=== PATIENT | male | born 1975 | race African-American/Black ===

== ENCOUNTER 2019-05-23 19:23 | Emergency (ER) | payer BC ==
--- OUTSIDE RECORDS SUMMARY | 2019-05-23 19:26 | XMS REPORT | Summary of Care ---
:1975 Author Organization [facility] Outpatient Imaging [place] Address [address] [place] [address]- Encounter HQ Encntr_alias(FIN) [id number] Date(s): 07/31/18 - 07/31/18 [facility] Outpatient Imaging [address] [address]- [place] Encounter Diagnosis Calculus of kidney (Final) - 08/03/18 Discharge Disposition: Home or Self Care Attending Physician: Tushar Vega MD Referring Physician: Tushar Vega MD Vital Signs No data available for this section Problem List Condition Effective Dates Status Health Status Informant HTN (hypertension)(Confirmed) Active Renal stone(Confirmed) Active Obesity(Confirmed) Active Allergies, Adverse Reactions, Alerts No Known Medication Allergies Medications No data available for this section Results No data available for this section Immunizations No data available for this section Procedures Procedure Date Related Diagnosis Body Site Status Foot joint operations Completed Social History Social History Type Response Smoking Status Never smoker; Exposure to Tobacco Smoke None; Cigarette Smoking Last 365 Days No; Reg Smoking Cessation Counseling No entered on: 10/27/18 Assessment and Plan No data available for this section
--- OUTSIDE RECORDS SUMMARY | 2019-05-23 19:26 | XMS REPORT | Summary of Care ---
:1975 Author Organization [facility] [place] Address [address] [facility] [facility] [address], [place] [address]- Encounter HQ Anatntr_hiren(FIN) [id number] Date(s): 12/19/17 - 12/20/17 [facility] [address] [address], [place] [address] - [phone] Vital Signs No data available for this section Problem List Condition Effective Dates Status Health Status Informant Obesity(Confirmed) Active Allergies, Adverse Reactions, Alerts Substance Reaction Severity Status NKDA Active Medications No data available for this section Results No data available for this section Immunizations No data available for this section Procedures Procedure Date Related Diagnosis Body Site Status Foot joint operations Completed Social History Social History Type Response Smoking Status Never smoker; Exposure to Tobacco Smoke None; Cigarette Smoking Last 365 Days No; Reg Smoking Cessation Counseling No entered on: 01/27/18 Assessment and Plan No data available for this section
--- OUTSIDE RECORDS SUMMARY | 2019-05-23 19:26 | XMS REPORT | Summary of Care ---
:1975 Author Organization [facility]iology [facility] [place] [address] [facility] [address] [place] [address] Encounter HQ Stephen_hiren(FIN) [id number] Date(s): 12/12/18 - 12/13/18 [facility] [address] [address]- [phone] Vital Signs No data available for this section Problem List Condition Effective Dates Status Health Status Informant HTN (hypertension)(Confirmed) Active Renal stone(Confirmed) Active Obesity(Confirmed) Active Allergies, Adverse Reactions, Alerts Substance Reaction Severity Status NKDA Active Medications amLODIPine 2.5 mg oral tablet 2.5 mg=1 tab, PO, Daily, # 90 ea, 4 Refill(s), Pharmacy: [facility] [id number] Start Date: 12/12/18 Status: Ordered Results No data available for this section [...]
--- OUTSIDE RECORDS SUMMARY | 2019-05-23 19:26 | XMS REPORT | Summary of Care ---
:1975 Author Organization [facility] Outpatient Imaging [place] Address [address] [place] [address]- Encounter HQ Encntr_alias(FIN) [id number] Date(s): 07/31/18 - 07/31/18 [facility] Outpatient Imaging [address] [address]- [place] Encounter Diagnosis Calculus of kidney (Final) [...]
--- OUTSIDE RECORDS SUMMARY | 2019-05-23 19:26 | XMS REPORT | Summary of Care ---
:1975 Author Organization [facility] Primary Care [place] Address [address] [facility], [place] [address]- Care Team Providers Name Role Phone Tobias Marte Jr Primary Care Physician Encounter HQ Solokemal(CHARLENE) [id number] Date(s): 05/04/19 - 05/04/19 [facility] [place] [address] [facility] [place] [address] [place] [address]- [phone] Discharge Disposition: Home or Self Care Attending Physician: Tobias Enamorado MD Vital Signs Most recent to oldest [Reference Range]: 1 Height 180.34 cm (05/04/19 1:54 PM) Temperature Oral [96.4-99.1 DegF] 98 DegF (05/04/19 1:54 PM) Blood Pressure [90-140/60-90 mmHg] 134/81 mmHg (05/04/19 1:54 PM) Peripheral Pulse Rate [60-100 bpm] 76 bpm (05/04/19 1:54 PM) Weight 116.989 kg (05/04/19 1:54 PM) Body Mass Index 35.97 m2 (05/04/19 1:54 PM) Problem List Condition Effective Dates Status Health Status Informant HTN (hypertension)(Confirmed) Active Renal stone(Confirmed) Active Obesity(Confirmed) Active Allergies, Adverse Reactions, Alerts No Known Medication Allergies Medications ciclopirox topical 0.77% cream 1 appl, TOP, BID, X 14 day, # 15 gm, 0 Refill(s), Pharmacy: [facility] [id number] Start Date: 05/04/19 Stop Date: 05/18/19 Status: Orderedhydrocortisone 2.5% rectal cream with applicator 1 appl, [place], BID, X 14 day, # 30 gm, 0 Refill(s), Pharmacy: [facility] [address] Start Date: 05/04/19 Stop Date: 05/18/19 Status: Ordered Results No data available for this section Immunizations No data available for this section Procedures Procedure Date Related Diagnosis Body Site Status Foot joint operations Completed Social History Social History Type Response Smoking Status Never smoker; Exposure to Tobacco Smoke None; Cigarette Smoking Last 365 Days No; Reg Smoking Cessation Counseling No entered on: 05/04/19 Assessment and Plan No data available for this section
--- OUTSIDE RECORDS SUMMARY | 2019-05-23 19:26 | XMS REPORT | Continuity of Care Document ---
:1975 Author Organization [facility] Care Team Providers Name Role Phone [facility] Unavailable Unavailable Problems Problem Status Onset Classification Date Comments Source Date Reported Calculus of 08/04/20 02/18/2019 [facility] kidney 18 [place] N20.0 - CALCULUS Active 07/27/20 [facility] OF KIDNEY 18 [place] Angina pectoris, 01/21/20 04/21/2018 [facility] unspecified 18 Abscess 01/24/20 Diagnosis 01/23/2017 [facility] 17 Headache 01/24/20 Diagnosis 01/23/2017 [facility] 17 Streptococcal 10/05/20 Diagnosis 10/05/2016 [facility] sore throat 16 Cough 10/05/20 Diagnosis 10/05/2016 [facility] 16 Discharge 07/04/20 07/07/2014 [facility] Diagnosis: Acute 14 headache HEADACHES Active 07/04/20 [facility] 14 Obesity Active Problem 05/17/2019 [facility], [facility], [facility] HTN (Confirmed) Active Problem 05/17/2019 [facility] Renal stone Active Problem 05/17/2019 [facility] Streptococcal Problem 01/23/2017 [facility] Sore Throat Elevated Blood Problem 01/23/2017 [facility] Pressure Medications Medication Details Route Status Patient Ordering Order Source Instructions Provider Date Hydrocortisone 25 1 appl, ND, Active 05/04/ Medical MG/ML Rectal BID, X 14 day, 2018 Group Cream # 30 gm, 0 Refill(s), Pharmacy: [facility] [id number] ciclopirox 7.7 1 appl, TOP, Active 05/04[facility] Medical MG/ML Topical BID, X 14 day, 2019 Group Cream # 15 gm, 0 Refill(s), Pharmacy: [facility] [address] amLODIPine 2.5 mg 2.5 mg=1 tab, Active 12/12/ Medical oral tablet PO, Daily, # 2019 Group 90 ea, 4 Refill(s), [facility] [address] Fluticasone 1 spray, Active Medical propionate 0.05 NASAL, BID, # 2019 Group MG/ACTUAT Metered 16 gm, 0 Dose Nasal [place] Refill(s), [facility] [address] Azithromycin 5 See No Longer Medical Day Dose Pack 250 Instructions, Active 2019 Group mg oral tablet Take 2 tablets by mouth the first day then 1 tablet by mouth days 2-5., X 5 day, # 6 tab, 0 Refill(s), [facility] [address] triamcinolone 40 mg, Route: Inactive Medical ACETONIDE 40 IM, ONCE, 2019 Group mg/mL injectable Dosing Weight suspension 112.273, kg, (KENALOG), Start date: 10/27/18 11:06:00 PAINTER HAND, Stop date: 10/27/18 11:06:00 PAINTER HAND meloxicam 7.5 mg 7.5 mg=1 tab, Active Medical oral tablet PO, BID, # 20 2018 Group tab, 0 Refill(s), Pharmacy: [facility] [address] tamsulosin 0.4 mg 0.4 mg=1 cap, Active Medical oral capsule PO, Daily, 0 2018 Group Refill(s) Acetaminophen 300 1 tab, PO, Active Medical MG / Codeine Q6H, 0 2018 Group Phosphate 30 MG Refill(s) Oral Tablet [Tylenol with Codeine #3] amLODIPine 2.5 mg 2.5 mg=1 tab, Active Medical oral tablet PO, Daily, # 2018 Group 90 tab, 1 Refill(s), [facility] [address] Aspirin 81 MG 81 mg=1 tab, Active Medical Enteric Coated PO, Daily, # 2018 Group Tablet 90 tab, 3 Refill(s), Pharmacy: [facility] [address] Metoclopramide 10 10 mg, PO, Active [facility] MG Oral Tablet Q6H, headache, 2013 [place] # 20 tab, 0 Refill(s) Ketorolac 30 mg, 1 mL, Inactive [facility] Route: IVP, 2013 [place] Drug form: INJ, ONCE, Dosing Weight 109.091, kg, Priority: STAT, Start date: 07/04/14 14:23:00, Stop date: 07/04/14 14:23:00Notes: (Same as:Toradol) IV bolus must be given >15 seconds. Give IM administration slowly and deeply into the muscle. Not for use > 4 days Metoclopramide 10 mg, Route: Inactive [facility] IVP, Drug 2013 [place] form: INJ, ONCE, Dosing Weight 109.091, kg, Priority: STAT, Start date: 07/04/14 11:52:00, Stop date: 07/04/14 11:52:00 Sodium Chloride 1,000 mL, Inactive [facility] 0.154 MEQ/ML 1,000 ml/hr, 2013 [facility] Injectable Infuse Over: 1 Solution hr, Route: IV, ONCE, Priority: STAT, Dosing Weight 109.091 kg, Start date: 07/04/14 11:51:00, Duration: 1 doses or times, Stop date: 07/04/14 11:51:00 Brompheniramine Bromfed DM 2 Active [facility] Maleate 0.4 MG/ML mg-30 mg-10 / mg/5 mL syrup Dextromethorphan Take 10 mL Hydrobromide 2 every 4-6 MG/ML / hours by oral Pseudoephedrine route as Hydrochloride 6 needed. MG/ML Oral Solution [Bromfed DM] cefdinir 300 MG cefdinir 300 Active [facility] Oral Capsule mg capsule Take 1 capsule every 12 hours by oral route with meals for 7 days. Lidocaine Lidocaine Active [facility] Hydrochloride 20 Viscous 2 % MG/ML Mucous mucosal Membrane Topical solution Take Solution 15 mL every 3 hours by oral route as needed. DO NOT SWALLOW!!! Amlodipine 2.5 MG amlodipine 2.5 Active [facility] Oral Tablet mg tablet Sulfamethoxazole Bactrim DS 800 Active [facility] 800 MG / mg-160 mg Trimethoprim 160 tablet Take 1 MG Oral Tablet tablet every [Bactrim] 12 hours by oral route with meals for 10 days. Allergies, Adverse Reactions, Alerts Substance Category Reaction Severity Reaction Status Date Comments Source type Reported No Known Assertion Drug MH Medication allergy Medical Allergies Group Immunizations Immunization Date Given Site Status Last Comments Source Updated influenza, 08/24/2016 completed [facility] injectable, quadrivalent Results Order Results Value Reference Date Interpretation Comments Source Name Range RESULT positive 10/05/ [facility] 2016 SWAB Left and 10/05/ [facility] LOCATION Right 2016 tonsillar pillars Influenza A negative [facility] 2015 Influenza B negative [facility] 2015 Pathology Reports No Data Provided for This Section Diagnostic Reports Report Value Date Source Intravenous Pyelogram DX HISTORY: - ureteral stone, N20.0 Calculus of kidney 07/31/2018 [facility] TECHNIQUE: Intravenous pyelogram was performed with the uneventful administration of intravenous contrast. COMPARISON: Correlation is made to CT of the abdomen and pelvis dated 2010. FINDINGS: [employer] Farm[employer] Supervisor image demonstrates right hemipelvic calcification which likely represents previously noted prostatic calcification. No radiographic evidence of urolith. Nonobstructive bowel gas pattern with no gas distended loops of small bowel seen. Incidental note is made of 6 nonrib-bearing lumbar-type vertebra. Following contrast administration, there was normal filling of the renal collecting systems with no evidence of hydronephrosis seen. The ureters are normal in course and caliber without evidence of fill ing defect seen. There is normal opacification of the bladder without evidence of mass or other abnormality seen. There was no significant post void residual. IMPRESSION: Unremarkable exam with no evidence of urolithiasis. [id number] Consultation Notes No Data Provided for This Section Discharge Summaries No Data Provided for This Section History and Physicals No Data Provided for This Section Vital Signs Vital Sign Value Date Comments Source BMI Calculated 35.97 05/04/2019 [facility] Weight 116.989 05/04/2019 [facility] Height 180.34 cm 05/04/2019 [facility] Systolic (mm Hg) 134 05/04/2019 [facility] Diastolic (mm Hg) 81 05/04/2019 [facility] Heart Rate 76 05/04/2019 [facility] Temperature Oral (F) 98 F 05/04/2019 [facility] Height 180.34 cm 10/27/2018 [facility] Heart Rate 73 10/27/2018 [facility] Temperature Oral (F) 98.4 F 10/27/2018 [facility] Systolic (mm Hg) 162 10/27/2018 [facility] Diastolic (mm Hg) 84 10/27/2018 [facility] Weight 112.273 10/27/2018 [facility] BMI Calculated 34.52 10/27/2018 [facility] Height 180.34 cm 08/02/2018 [facility] Weight 111.818 08/02/2018 [facility] BMI Calculated 34.38 08/02/2018 [facility] Heart Rate 61 08/02/2018 [facility] Temperature Oral (F) 97.8 F 08/02/2018 [facility] Systolic (mm Hg) 144 08/02/2018 [facility] Diastolic (mm Hg) 92 08/02/2018 [facility] BMI Calculated 34.59 07/27/2018 [facility] Weight 112.5 07/27/2018 [facility] Systolic (mm Hg) 162 07/27/2018 [facility] Diastolic (mm Hg) 93 07/27/2018 [facility] Height 180.34 cm 07/27/2018 [facility] Temperature Oral (F) 97.9 F 07/27/2018 [facility] Heart Rate 75 07/27/2018 [facility] BMI Calculated 34.94 07/24/2018 [facility] Temperature Oral (F) 98.5 F 07/24/2018 [facility] Heart Rate 75 07/24/2018 [facility] Systolic (mm Hg) 148 07/24/2018 [facility] Diastolic (mm Hg) 89 07/24/2018 [facility] Height 180.34 cm 07/24/2018 [facility] Weight 113.636 07/24/2018 [facility] Weight 109.091 01/27/2018 [facility] BMI Calculated 33.54 01/27/2018 [facility] Height 180.34 cm 01/27/2018 [facility] Heart Rate 61 01/27/2018 [facility] Systolic (mm Hg) 149 01/27/2018 [facility] Diastolic (mm Hg) 84 01/27/2018 [facility] Height 180.34 cm 01/13/2018 [facility] Weight 101.364 01/13/2018 [facility] BMI Calculated 31.17 01/13/2018 [facility] Systolic (mm Hg) 148 12/29/2017 [facility] Diastolic (mm Hg) 86 12/29/2017 [facility] Heart Rate 80 12/29/2017 [facility] Height 180.34 cm 12/29/2017 [facility] Weight 111.42 12/29/2017 [facility] BMI Calculated 34.26 12/29/2017 [facility] Diastolic (mm Hg) 82 01/23/2017 [facility] Height 66 01/23/2017 [facility] Systolic (mm Hg) 142 01/23/2017 [facility] Weight 235 01/23/2017 [facility] Diastolic (mm Hg) 90 10/05/2016 [facility] Height 66 10/05/2016 [facility] Systolic (mm Hg) 148 10/05/2016 [facility] Weight 220 10/05/2016 [facility] Heart Rate 68 07/04/2014 [facility] Respitory Rate 16 07/04/2014 [facility] Systolic (mm Hg) 132 07/04/2014 [facility] Diastolic (mm Hg) 90 07/04/2014 [facility] Respitory Rate 16 07/04/2014 [facility] Heart Rate 62 07/04/2014 [facility] Systolic (mm Hg) 143 07/04/2014 [facility] Diastolic (mm Hg) 85 07/04/2014 [facility] Temperature Oral (F) 98.0 F 07/04/2014 [facility] Systolic (mm Hg) 131 07/04/2014 [facility] Diastolic (mm Hg) 83 07/04/2014 [facility] Heart Rate 71 07/04/2014 [facility] Respitory Rate 16 07/04/2014 [facility] Temperature Oral (F) 98.1 F 07/04/2014 [facility] Weight 109.091 07/04/2014 [facility] BMI Calculated 38.82 07/04/2014 [facility] Temperature Oral (F) 98.3 F 07/04/2014 [facility] Height 167.64 cm 07/04/2014 [facility] Encounters Location Location Encounter Encounter Reason Attending ADM DC Status Source Details Type Number For Provider Date Date Visit [facility] [id number] Xavier Gonzales 07/04 07/04 [facility] Emergency [facility] Out[facility] [id number] [facility] 11/26 Active [facility] 2 [facility] Outpatient [id number] [facility] 12/15 Active [facility] 3 [facility] [place] [facility] [id number] [facility] 03/01 Active [facility] 4 [facility] Outpatient [id number] [facility] 04/19 Active [facility] 5 Brennen [place] - Tracie [id number] Tracie 10/05 [facility] Tom, [id number] Tom /2015 - QUALITY IMPROVEMENT SPECIALIST: [id number] [facility] [address], [place] [address], Ph. [place] - Radha [id number] Radha 01/23 [facility] Albarado, QUALITY IMPROVEMENT SPECIALIST: [id number] Per - [address] [facility] [phone] [id number]_[address], [address] [place] [address], Ph. Outpatient [id number] [facility] 06/06 Active Memorial 6 Brennen [facility] Phone [id number] 12/19 12/21 MH Primary Message [facility] [place] [facility]patient [id number] summer [facility] [id number] Elfego Simmons 12/29 12/30 Cardiology [facility] Outpatient [id number] summer [facility] [place] [facility] Outpatient [id number] summer Active Memorial Brennen [facility] Outpatient [id number] summer Cardiology Medical [facility] Outpatient [id number] TOBIAS 07/24 Active Memorial Brennen [facility] Outpatient [id number] Tobias 07/24 07/25 MH Primary 9 [facility] [place] Outpatient [id number] CHRYSTAL VEGA 07/27 Active Memorial Brennen [facility] Outpatient [id number] Chrystal Vega 07/27 07/28 Urology [facility] Outpt Diag [id number] Chrystal Vega 07/31 08/01 [facility] Outpatient Services [facility] [place] [facility] Phone [id number] 08/01 08/03 MH Primary [facility] [place] Outpatient [id number] TOBIAS 08/02 Active Memorial 1 Brennen [facility] Outpatient [id number] Tobias 08/02 08/03 Primary 1 [facility] [place] Outpatient [id number] SE 10/25 Active Memorial 2 Brennen [facility] Ambulatory [id number] Se 10/25 10/25 Primary Pre-Reg 2 [facility] [place] Outpatient [id number] TOBIAS 10/27 [facility] [id number] Tobias 10/27 10/28 MH Primary 3 [facility] Phone [id number] 12/12 12/14 Cardiology Message Medical [facility] Phone [id number] 03/07 03/09 Primary Message [facility] [place] Outpatient [id number] Tobias 05/04 Active Memorial 4 [facility] Outpatient [id number] Tobias 05/04 05/05 Primary 4 [facility] Jr [facility] [place] Procedures Procedure Code Date Perfomer [place] [address] 07/27/2018 Medical post-voiding Group residual urine and/or bladder capacity by ultrasound, non-imaging Foot joint [id number] [facility] operations Foot joint [id number] [facility] Foot joint [id number] Medical operations Group Assessment and Plan No Data Provided for This Section Plan of Care No Data Provided for This Section Social History Social History Date Source Social History TypeResponse 05/04/2019 [facility] Smoking Status Never smoker; Exposure to Tobacco Smoke None; Cigarette Smoking Last 365 Days No; Reg Smoking Cessation Counseling No entered on: 05/04/19 Social History TypeResponse 10/27/2018 [facility] Smoking Status Never smoker; Exposure to Tobacco Smoke None; Cigarette Smoking Last 365 Days No; Reg Smoking Cessation Counseling No entered on: 10/27/18 Social History TypeResponse 01/27/2018 [facility] Smoking Status Never smoker; Exposure to Tobacco Smoke None; Cigarette Smoking Last 365 Days No; Reg Smoking Cessation Counseling No entered on: 01/27/18 Smoking Status 02/13/2015 [facility] Never Smoker Family History No Data Provided for This Section Advance Directives No Data Provided for This Section Functional Status No Data Provided for This Section
--- OUTSIDE RECORDS SUMMARY | 2019-05-23 19:26 | XMS REPORT | Summary of Care ---
:1975 Author Organization [facility] Primary Care [place] Address [address] [address], [place] [address]- Encounter HQ Solor_hiren(FIN) [id number] Date(s): 10/27/18 - 10/27/18 [facility] Primary Care [place] [address] [place] [address]. [place] [address]- [phone] Discharge Disposition: Home or Self Care Attending Physician: Tobias Enamorado MD Vital Signs Most recent to oldest [Reference Range]: 1 Height 180.34 cm (10/27/18 10:40 AM) Temperature Oral [96.4-99.1 DegF] 98.4 DegF (10/27/18 10:40 AM) Blood Pressure [90-140/60-90 mmHg] 162/84 mmHg *HI* (10/27/18 10:40 AM) Peripheral Pulse Rate [60-100 bpm] 73 bpm (10/27/18 10:40 AM) Weight 112.273 kg (10/27/18 10:40 AM) Body Mass Index 34.52 m2 (10/27/18 10:40 AM) Problem List Condition Effective Dates Status Health Status Informant HTN (hypertension)(Confirmed) Active Renal stone(Confirmed) Active Obesity(Confirmed) Active Allergies, Adverse Reactions, Alerts No Known Medication Allergies Medications Azithromycin 5 Day Dose Pack 250 mg oral tablet See Instructions, Take 2 tablets by mouth the first day then 1 tablet by mouth days 2-5., X 5 day, #6 tab, 0 Refill(s), Pharmacy: [email or web address] [address] Start Date: 10/27/18 Stop Date: 11/01/18 Status: Completedfluticasone nasal 0.05 mg/inh spray 1 spray, NASAL, BID, # 16 gm, 0 Refill(s), Pharmacy: [facility] [address] Start Date: 10/27/18 Status: Orderedtriamcinolone ACETONIDE 40 mg/mL injectable suspension 40 mg, Route: IM, ONCE, Dosing Weight 112.273, kg, (KENALOG), Start date: 11:06:00 CHANGE CONTROL COORDINATOR, Stop date: 10/27/18 11:06:00 CHANGE CONTROL COORDINATOR Start Date: 10/27/18 Stop Date: 10/27/18 Status: Completed Results No data available for this section [...]
--- OUTSIDE RECORDS SUMMARY | 2019-05-23 19:26 | XMS REPORT | Summary of Care ---
:1975 Author Organization [facility] Address [address], [place] [address]- Encounter HQ Stephen_hiren(FIN) [id number] Date(s): 01/13/18 - 01/13/18 [facility] [address] [place] [address]- Encounter Diagnosis Angina pectoris, unspecified (Final) - 01/19/18 Discharge Disposition: Home or Self Care Attending Physician: Padmini Fuller NP Admitting Physician: Padmini Fuller NP Referring Physician: Padmini Fuller NP Vital Signs Most recent to oldest [Reference Range]: 1 Height 180.34 cm (01/13/18 11:54 AM) Weight 101.364 kg (01/13/18 11:54 AM) Body Mass Index 31.17 m2 (01/13/18 11:54 AM) Problem List Condition Effective Dates Status [...]
--- OUTSIDE RECORDS SUMMARY | 2019-05-23 19:26 | XMS REPORT | Summary of Care ---
:1975 Author Organization [facility] Primary Care [place] Address [address] [address], [place] [address]- Encounter HQ Encntr_alias(FIN) [id number] Date(s): 10/25/18 - 10/25/18 [facility] [place] [address] [place] [address] [place] [address]- [phone] Attending Physician: Joyce Bejarano DO Vital Signs No data available for this [...]
--- OUTSIDE RECORDS SUMMARY | 2019-05-23 19:26 | XMS REPORT | Summary of Care ---
:1975 Author Organization [facility] Outpatient Imaging [place] Address [address] [place] [address]- Encounter HQ Encntr_alias(FIN) [id number] Date(s): 07/31/18 - 07/31/18 [facility] Outpatient Imaging [address] [address]- [place] Encounter Diagnosis Calculus of kidney (Final) - 08/03/18 Discharge Disposition: Home or Self Care Attending Physician: Tusahr Vega MD Referring Physician: Tushar Vega MD [...]
--- OUTSIDE RECORDS SUMMARY | 2019-05-23 19:26 | XMS REPORT | Summary of Care ---
:1975 Author Organization [facility] Cardiology [facility] [place] Address [address] [facility] [address] [place] [address] Encounter HQ Pricila(CHARLENE) [id number] Date(s): 01/27/18 - 01/27/18 [facility] Cardiology [facility] [place] [address] [address]- [phone] Discharge Disposition: Home or Self Care Attending Physician: Padmini Fuller PUBLIC HEALTH TRAINING ASSISTANT Vital Signs Most recent to oldest [Reference Range]: 1 Height 180.34 cm (01/27/18 2:01 PM) Blood Pressure [90-140/60-90 mmHg] 149/84 mmHg *HI* (01/27/18 2:01 PM) Peripheral Pulse Rate [60-100 bpm] 61 bpm (01/27/18 2:01 PM) Weight 109.091 kg (01/27/18 2:01 PM) Body Mass Index 33.54 m2 (01/27/18 2:01 PM) Problem List Condition Effective Dates Status Health Status Informant Obesity(Confirmed) Active Allergies, Adverse Reactions, Alerts Substance Reaction Severity Status NKDA Active Medications amLODIPine 2.5 mg oral tablet 2.5 mg=1 tab, PO, Daily, # 90 tab, 1 Refill(s), Pharmacy: [facility] [id number] Start Date: 01/27/18 Status: Ordered Results No data available for [...]
--- OUTSIDE RECORDS SUMMARY | 2019-05-23 19:26 | XMS REPORT | Summary of Care ---
:1975 Author Organization [facility] Address [address] [facility], [place] [address]- Encounter HQ Pricila(FIN) [id number] Date(s): 08/02/18 - 08/02/18 [facility] [address] [facility] [place] [address] [place] [address]- [phone] Discharge Disposition: Home or Self Care Attending Physician: Tobias Enamorado MD Vital Signs Most recent to oldest [Reference Range]: 1 Height 180.34 cm (08/02/18 1:45 PM) Temperature Oral [96.4-99.1 DegF] 97.8 DegF (08/02/18 1:45 PM) Blood Pressure [90-140/60-90 mmHg] 144/92 mmHg *HI* (08/02/18 1:45 PM) Peripheral Pulse Rate [60-100 bpm] 61 bpm (08/02/18 1:45 PM) Weight 111.818 kg (08/02/18 1:45 PM) Body Mass Index 34.38 m2 (08/02/18 1:45 PM) Problem List Condition Effective Dates Status Health Status Informant HTN (hypertension)(Confirmed) Active Renal stone(Confirmed) Active Obesity(Confirmed) Active Allergies, Adverse Reactions, Alerts No Known Medication Allergies Medications meloxicam 7.5 mg oral tablet 7.5 mg=1 tab, PO, BID, # 20 tab, 0 Refill(s), Pharmacy: [facility] [id number] Start Date: 08/02/18 Stop Date: 08/12/18 Status: Ordered Results No data available for [...]
--- OUTSIDE RECORDS SUMMARY | 2019-05-23 19:26 | XMS REPORT | Summary of Care ---
:1975 Author Organization [facility] [employer] Address [address] [facility], [place] [address]- Encounter HQ Anatntr_hiren(FIN) [id number] Date(s): 08/01/18 - 08/02/18 [facility] [employer] [address] [place] [address] [place] [address]- [phone] Vital Signs No data available for this [...]
--- OUTSIDE RECORDS SUMMARY | 2019-05-23 19:26 | XMS REPORT | Summary of Care ---
:1975 Author Organization [facility] Cardiology [facility] Address [address] [facility] [address] [place] [address] Encounter TIARA Mcnulty(CHARLENE) [id number] Date(s): 12/29/17 - 12/29/17 [facility] Card[facility] [address] [address] [phone] Discharge Disposition: Home or Self Care Attending Physician: Elfego Simmons MD Vital Signs Most recent to oldest [Reference Range]: 1 Height 180.34 cm (12/29/17 9:35 AM) Blood Pressure [90-140/60-90 mmHg] 148/86 mmHg *HI* (12/29/17 9:35 AM) Peripheral Pulse Rate [60-100 bpm] 80 bpm (12/29/17 9:35 AM) Weight 111.42 kg (12/29/17 9:35 AM) Body Mass Index 34.26 m2 (12/29/17 9:35 AM) Problem List Condition Effective Dates Status Health Status Informant Obesity(Confirmed) Active Allergies, Adverse Reactions, Alerts Substance Reaction Severity Status NKDA Active Medications aspirin 81 mg tablet, enteric coated 81 mg=1 tab, PO, Daily, # 90 tab, 3 Refill(s), Pharmacy: [facility] [id number] Start Date: 12/29/17 Status: Ordered Results No data available for [...]
--- OUTSIDE RECORDS SUMMARY | 2019-05-23 19:26 | XMS REPORT | Summary of Care ---
:1975 Author Organization [facility] Address [address] [facility], [place] [address]- Encounter HQ Anatntr_hiren(FIN) [id number] Date(s): 03/07/19 - 03/08/19 [facility] [address] [address] [place] [address] [place] [address]- [phone] Vital Signs No data available for this [...]
--- OUTSIDE RECORDS SUMMARY | 2019-05-23 19:27 | XMS REPORT | Summary of Care ---
:1975 Author Encounter TIARA Mcnulty(CHARLENE) [id number] Date(s): 07/04/14 - 07/04/14 [facility] [address] Discharge Diagnosis: Acute headache Discharge Disposition: Home Physician Attending: Xavier Gonzales MD Reason for Visit HEADACHES Vital Signs Most recent to oldest 1 2 3 [Reference Range]: Height 167.64 cm (07/04/14 11:00 AM) Temperature Oral [96.4-99.1 98.0 DegF 98.1 DegF 98.3 DegF DegF] (07/04/14 2:57 PM) (07/04/14 1:27 PM) (07/04/14 11:00 AM) Systolic Blood Pressure 132 mmHg 143 mmHg 131 mmHg [90-140 mmHg] (07/04/14 3:27 PM) *HI* (07/04/14 1:27 PM) (07/04/14 2:57 PM) Diastolic Blood Pressure 90 mmHg 85 mmHg 83 mmHg [60-90 mmHg] (07/04/14 3:27 PM) (07/04/14 2:57 PM) (07/04/14 1:27 PM) Respiratory Rate [14-20 16 BRMIN 16 BRMIN 16 BRMIN BRMIN] (07/04/14 3:27 PM) (07/04/14 2:57 PM) (07/04/14 1:27 PM) Peripheral Pulse Rate [60-100 68 bpm 62 bpm 71 bpm bpm] (07/04/14 3:27 PM) (07/04/14 2:57 PM) (07/04/14 1:27 PM) Weight 109.091 kg (07/04/14 11:00 AM) Body Mass Index 38.82 m2 (07/04/14 11:00 AM) Problem List No data available for this section Allergies, Adverse Reactions, Alerts Substance Reaction Severity Status NKDA Active Medications ketorolac 30 mg, 1 mL, Route: IVP, Drug form: INJ, ONCE, Dosing Weight 109.091, kg, Priority: STAT, Start date: 07/04/14 14:23:00, Stop date: 07/04/14 14:23:00 Notes: (Same as:Toradol) IV bolus must be given >15 seconds. Give IM administration slowly and deeply into the muscle. Not for use > 4 days Start Date: 07/04/14 Stop Date: 07/04/14 Status: Completedmetoclopramide 10 mg, Route: IVP, Drug form: INJ, ONCE, Dosing Weight 109.091, kg, Priority: STAT, Start date: 07/04/14 11:52:00, Stop date: 07/04/14 11:52:00 Start Date: 07/04/14 Stop Date: 07/04/14 Status: Completedmetoclopramide 10 mg oral tablet 10 mg, PO, Q6H, headache, # 20 tab, 0 Refill(s) Start Date: 07/04/14 Status: OrderedSodium Chloride 0.9% (Bolus) IV 1,000 mL, 1,000 ml/hr, Infuse Over: 1 hr, Route: IV, ONCE, Priority: STAT, Dosing Weight 109.091 kg,Start date: 07/04/14 11:51:00, Duration: 1 doses or times, Stop date: 07/04/14 11:51:00 Start Date: 07/04/14 Stop Date: 07/04/14 Status: Completed Medications Administered During Your Visit No data available for this section Immunizations No data available for this section Procedures Procedure Type Body Site Date of Procedure Related Diagnosis Foot joint operations Social History Social History Type Response Smoking Status Never smoker, Exposure to Tobacco Smoke None, Cigarette Smoking Last 365 Days No, Reg Smoking Cessation Counseling No
--- OUTSIDE RECORDS SUMMARY | 2019-05-23 19:27 | XMS REPORT | Summary of Care ---
:1975 Author Organization [facility] Address [address] [facility], [place] [address]- Encounter HQ Stephen_hiren(FIN) [id number] Date(s): 07/24/18 - 07/24/18 [facility] [address] [address] [place] [address] [place] [address]- [phone] Discharge Disposition: Home or Self Care Attending Physician: Tobias Enamorado MD Vital Signs Most recent to oldest [Reference Range]: 1 Height 180.34 cm (07/24/18 9:54 AM) Temperature Oral [96.4-99.1 DegF] 98.5 DegF (07/24/18 9:54 AM) Blood Pressure [90-140/60-90 mmHg] 148/89 mmHg *HI* (07/24/18 9:54 AM) Peripheral Pulse Rate [60-100 bpm] 75 bpm (07/24/18 9:54 AM) Weight 113.636 kg (07/24/18 9:54 AM) Body Mass Index 34.94 m2 (07/24/18 9:54 AM) Problem List Condition Effective Dates Status Health Status Informant HTN (hypertension)(Confirmed) Active Renal stone(Confirmed) Active Obesity(Confirmed) Active Allergies, Adverse Reactions, Alerts Substance Reaction Severity Status NKDA Active Medications No Known Medications Results No data available for this section [...]
--- OUTSIDE RECORDS SUMMARY | 2019-05-23 19:27 | XMS REPORT | Encounter Summary ---
:1975 Author Reason for Visit Medical Complaint Instructions 1. Abscess Bactrim DS 800 mg-160 mg tablet 2. Headache Discussion Note: None recorded.Patient educational handouts: No information available. Plan of Care Patient Instructions Apply warm and dry compresses to area 3 or 4 times a day for pain. For headache okay to take tylenol or ibuprofen as needed. Follow up immediately with PCP or ER if you notice increased pain, swelling, warmth, redness, red streaks leading from the infected skin, or you develop a fever. Reminders Provider Appointments None recorded. Lab None recorded. Referral None recorded. Procedures None recorded. Surgeries None recorded. Imaging None recorded. Medications Name Start Date amlodipine 2.5 mg tablet Bactrim DS 800 mg-160 mg tablet Take 1 tablet every 12 hours by oral route with meals for 10 days. Medications Administered None recorded. Vitals Height Weight BMI Blood Pressure 5 ft 6 in 235 lbs 37.9 142/82 Lab Results None recorded. Allergies Name Reaction Severity Onset NKDA Problems Name Status Onset Date Source Streptococcal Sore Throat Active Encounter Elevated Blood Pressure Active Encounter Procedures None recorded. Vaccine List Vaccine Type influenza, injectable, quadrivalent 08/23/2016 Social History Smoking Status Never Smoker Past Encounters 01/23/2017 Abscess; Headache Radha Per, [facility]: [address] [facility], [place] [address], Ph. History of Present Illness Rcad-Xdgummi-Qpvrh-Skin Lesion-Bite 1 Reported By: Patient HPI: Location: groin. Quality: painful, tender, single, localized, swollen. Duration: has noted for <1 week. Context: no new detergents or skin products, no one else with similar rash, no sting or bite. Aggravating factors: nothing makes it worse. Associated Symptoms: no muscle aches, no cold symptoms, no nausea, no vomiting, no diarrhea, no urinary symptoms, fever/chills, headache Review of Systems Basic Reported By: Patient Constitutional: Constitutional: fever Eyes: Eyes: no eye complaints Dsse-Gufh-Bsokg-Throat: Ears: no ear complaints. Nose: no nose/sinus problems. Mouth/Throat: no sore throat Respiratory: Respiratory: no cough Gastrointestinal: Gastrointestinal: no vomiting / diarrhea Musculoskeletal: Musculoskeletal: no muscle aches Skin: Skin: rash Neurologic: Neurologic: headache Physical Exam Adult Basic, Adult Male Complete Reported By: Patient Constitutional: General Appearance: healthy-appearing, well-nourished, well-developed. Level of Distress: NAD. Ambulation: ambulating normally Psychiatric: Mental Status: active and alert. Orientation: to time, to place, to person Eyes: Lids and Conjunctivae: non-injected, no discharge Neck: Neck: supple. Lymph Nodes: no cervical LAD, no inguinal LAD Lungs: Respiratory effort: no dyspnea, no tachypnea. Auscultation: breath sounds normal, good air movement Cardiovascular: Heart Auscultation: RRR, no murmurs Musculoskeletal:: Joints, Bones, and Muscles: normal movement of all extremities Neurologic: Gait and Station: normal gait, normal station Skin: Inspection and palpation: nodule
--- OUTSIDE RECORDS SUMMARY | 2019-05-23 19:27 | XMS REPORT ---
:1975 Author [facility] Address [facility] [address] [place] [address] Care Team Providers Name Role Phone Unavailable Unavailable Unavailable Payers Payer Name Policy Type Policy Number Effective Date Expiration Date Problems This patient has no known problems. Allergies, Adverse Reactions, Alerts Allergy Allergy Status Severity Reaction(s) Onset Inactive Treating Comments Name Type Date Date Clinician No Known DA Active U 2018-06 Allergies -25 00:00:0 0 Medications This patient has no known medications.
--- OUTSIDE RECORDS SUMMARY | 2019-05-23 19:27 | XMS REPORT | Summary of Care ---
:1975 Author Organization [facility] Urology [facility] Address [address] [facility] [address] [place] [address] Encounter HQ Pricila(FIN) [id number] Date(s): 07/27/18 - 07/27/18 [facility] [address] [facility] [address] [place] [address] [phone] Discharge Disposition: Home or Self Care Attending Physician: Tushar Vega MD Vital Signs Most recent to oldest [Reference Range]: 1 Height 180.34 cm (07/27/18 11:32 AM) Temperature Oral [96.4-99.1 DegF] 97.9 DegF (07/27/18 11:32 AM) Blood Pressure [90-140/60-90 mmHg] 162/93 mmHg *HI* (07/27/18 11:32 AM) Peripheral Pulse Rate [60-100 bpm] 75 bpm (07/27/18 11:32 AM) Weight 112.5 kg (07/27/18 11:32 AM) Body Mass Index 34.59 m2 (07/27/18 11:32 AM) Problem List Condition Effective Dates Status Health Status Informant HTN (hypertension)(Confirmed) Active Renal stone(Confirmed) Active Obesity(Confirmed) Active Allergies, Adverse Reactions, Alerts Substance Reaction Severity Status NKDA Active Medications tamsulosin 0.4 mg oral capsule 0.4 mg=1 cap, PO, Daily, 0 Refill(s) Start Date: 07/27/18 Status: OrderedTylenol with Codeine #3 oral tablet 1 tab, PO, Q6H, 0 Refill(s) Start Date: 07/27/18 Status: Ordered Results No data available for this section Immunizations No data available for this section Procedures Procedure Date Related Diagnosis Body Site Status Measurement of post-voiding residual 07/27/18 Completed urine and/or bladder capacity by ultrasound, non-imaging Foot joint operations Completed Social History Social History Type Response Smoking Status Never smoker; Exposure to Tobacco Smoke None; Cigarette Smoking Last 365 Days No; Reg Smoking Cessation Counseling No entered on: 10/27/18 Assessment and Plan No data available for this section
--- OUTSIDE RECORDS SUMMARY | 2019-05-23 19:27 | XMS REPORT | Encounter Summary ---
:1975 Author Reason for Visit Medical Complaint Instructions 1. Streptococcal sore throat Lidocaine Viscous 2 % mucosal solution cefdinir 300 mg capsule strep throat: care instructions rapid strep group A, throat rapid flu (A+B) 2. Cough Bromfed DM 2 mg-30 mg-10 mg/5 mL syrup Discussion Note: None recorded. Plan of Care Patient Instructions Take medication as directed. If symptoms worsen or do not improve follow up with your PCP. Drink plenty of fluids and rest. Reminders Provider Appointments None recorded. Lab Rapid Strep 10/05/2016 [facility], Throat Rapid Flu 10/05/2016 [facility] (A+B) Referral None recorded. Procedures None recorded. Surgeries None recorded. Imaging None recorded. Medications Name Start Date Bromfed DM 2 mg-30 mg-10 mg/5 mL syrup Take 10 mL every 4-6 hours by oral route as needed. cefdinir 300 mg capsule Take 1 capsule every 12 hours by oral route with meals for 7 days. Lidocaine Viscous 2 % mucosal solution Take 15 mL every 3 hours by oral route as needed. DO NOT SWALLOW!!! Medications Administered None recorded. Vitals Height Weight BMI Blood Pressure 5 ft 6 in 220 lbs 35.5 148/90 Lab Results Date Name Result Description Value Range Status Rapid Strep Group Result positive a, Throat Swab Location Left and Right tonsillar pillars Rapid Flu (A+B) Influenza a negative Influenza B negative Allergies Name Reaction Severity Onset NKDA Problems Name Status Onset Date Source Streptococcal Sore Throat Active Encounter Elevated Blood Pressure Active Encounter Procedures None recorded. Vaccine List None recorded. Social History Smoking Status Never Smoker Past Encounters 10/05/2016 Streptococcal Sore Throat; Cough [facility]: [address] [facility], [place] [address], Ph. History of Present Illness Throat-Oral Complaint Reported By: Patient HPI: Location: throat. Quality: sore throat. Severity: moderate. Duration: 6 days. Context: sick contact. Modifying factors: OTC medication. Associated Symptoms: sore throat; headache, cough, congestion Review of Systems Basic Reported By: Patient Constitutional: Constitutional: fever Eyes: Eyes: no eye complaints Iwwh-Fnxn-Xaoda-Throat: Ears: no ear complaints. Nose: no nose/sinus problems. Mouth/Throat: no bleeding gums, no mouth complaints, no teeth problems, sore throat Cardiovascular: Cardiovascular: no chest pain, no shortness of breath, no known heart murmur Respiratory: Respiratory: no wheezing, no shortness of breath, cough Gastrointestinal: Gastrointestinal: no abdominal pain, no vomiting / diarrhea Genitourinary: Genitourinary: no urinary complaints, no discharge Musculoskeletal: Musculoskeletal: no muscle aches, no muscle weakness, no arthralgias/joint pain, no back pain Skin: Skin: no abnormal / changing mole, no jaundice, no rashes Neurologic: Neurologic: no loss of consciousness, no weakness, no numbness, no seizures, no dizziness, headache Physical Exam Adult Basic Reported By: Patient Constitutional: General Appearance: healthy-appearing, well-nourished, well-developed. Level of Distress: mild distress. Ambulation: ambulating normally Psychiatric: Mental Status: active and alert Eyes: Lids and Conjunctivae: non-injected Mfp-Vqmn-Dhhii-Throat: Ears: TMs clear. Nose: nares patent. Lips, Teeth, and Gums: no mouth or lip ulcers. Oropharynx: erythema Neck: Neck: tender. Lymph Nodes: no cervical LAD Lungs: Respiratory effort: no dyspnea. Auscultation: breath sounds normal Cardiovascular: Heart Auscultation: RRR Skin: Inspection and palpation: no rash
[2019-05-23] MEDS ORDERED: MORPHINE 4 MG/ML SYR ONE (20:08)
[2019-05-23] MEDS ORDERED: ONDANSETRON 4 MG/2 ML VIAL ONE (20:09)
[2019-05-23] MEDS ORDERED: KETOROLAC 30 MG/ML INJ ONE (20:09)
[2019-05-23] MEDS ORDERED: NA CHLORIDE 0.9% 1,000 ML ONE (20:09)
[2019-05-23 20:12] LABS: Absolute Lymphocytes (CBC) 3.3 K/uL (0.7-4.9); Basophils % 1.2 % (0-1.3); Hematocrit 42.7 % (39.6-49.0); Lymphocytes % 40.3 % (15.3-44.8); MPV 8.1 fL (7.6-11.3); RBC Red Blood Cell Count 4.88 M/uL (4.33-5.43)
[2019-05-23 20:15] LABS: Urine Blood TRACE (NEG); Urine Glucose NEGATIVE (NEG); Urine Protein NEGATIVE (NEG); Urine pH 7.5 (5.0-7.0)
[2019-05-23 20:32] LABS: Albumin 4.3 g/dL (3.4-5.0); Bilirubin Direct 0.1 mg/dL (0-0.2); Bilirubin Total 0.6 mg/dL (0.2-1.0); Protein, Total 7.9 g/dL (6.4-8.2)
[2019-05-23 20:33] LABS: Potassium 2.9 mmol/L (3.5-5.1)
--- NOTE | 2019-05-23 20:35 | RAD REPORT ---
EXAM DESCRIPTION: CT - Stone Protocol - 05/23/2019 8:07 pm CLINICAL HISTORY: Flank pain. FLANK PAIN COMPARISON: No comparisons TECHNIQUE: Axial images were obtained without oral or IV contrast. Lack of contrast limits solid org an and vascular assessment. The [id number] spans the entirety of the system partially obscuring uppermost abdomen and lung bases. Coronal reformatted images were obtained and reviewed. All CT scans are performed using dose optimization technique as appropriate and may include automated exposure control or mA/KV adjustment according to patient size. FINDINGS: The lower lung purdy are clear. Imaged portions of the liver and spleen show no suspicious findings on non-contrast imaging. The panc reas and adrenal glands are normal. No pathologic lymphadenopathy in the abdomen or pelvis. 7 mm stone is present inferior calyx right kidney. A punctate 1 mm calculus is present distal left ur eter with mild left hydronephrosis. No bowel obstruction, free air, free fluid or abscess. Normal appendix noted. No significant bony abnormality. IMPRESSION: Punctate 1 mm calculus distal left ureter with mild left hydronephrosis.
[2019-05-23] MEDS ORDERED: CEFTRIAXONE/SWI 1gm 1 GM/10 ML SYR ONE (20:38)
--- NOTE | 2019-05-23 20:53 | EDPHYS ---
Physician Documentation [facility] Name: Cesar Kimble Age: 44 yrs Sex: Male : 1975 Arrival Date: 05/23/2019 Time: 19:24 Bed 28 Private MD: ED Physician Rich Nicholson HPI: 05/23 19:59 This 44 yrs old Black Male presents to ER via Wheelchair with complaints of Shortness gordon Of Breath, Abdominal Pain, Back Pain. 19:59 The patient has shortness of breath at rest. gordon 19:59 The patient presents with abdominal pain in the left upper quadrant, in the left lower gordon quadrant. Onset: The symptoms/episode began/occurred just prior to arrival. The patient complains of pain in the left low back and left mid back. The pain radiates to the left low back and left mid back. Onset: The symptoms/episode began/occurred just prior to arrival. Associated signs and symptoms: The patient has no apparent associated signs or symptoms. Historical: - Allergies: 19:28 No Known Allergies; hb - Home Meds: 19:28 blood pressure medication [Active]; hb - PMHx: 19:28 Hypertension; hb - Immunization history:: Flu vaccine is not up to date. - Social history:: Smoking status: Patient/guardian denies using tobacco. - Ebola Screening: : Patient denies travel to an Ebola-affected area in the 21 days before illness onset. - Family history:: not pertinent. ROS: 19:59 Constitutional: Negative for fever, chills, and weight loss, Eyes: Negative for injury, gordon pain, redness, and discharge, ENT: Negative for injury, pain, and discharge, Neck: Negative for injury, pain, and swelling, Cardiovascular: Negative for chest pain, palpitations, and edema, Respiratory: Negative for shortness of breath, cough, wheezing, and pleuritic chest pain, : Negative for injury, bleeding, discharge, and swelling, MS/Extremity: Negative for injury and deformity, Skin: Negative for injury, rash, and discoloration, Neuro: Negative for headache, weakness, numbness, tingling, and seizure, Psych: Negative for depression, anxiety, suicide ideation, homicidal ideation, and hallucinations, Allergy/Immunology: Negative for hives, rash, and allergies, Endocrine: Negative for neck swelling, polydipsia, polyuria, polyphagia, and marked weight changes, Hematologic/Lymphatic: Negative for swollen nodes, abnormal bleeding, and unusual bruising. 19:59 Abdomen/GI: Positive for abdominal pain, of the anterior aspect of left lateral abdomen, posterior aspect of left lateral abdomen, left upper quadrant and left lower quadrant. 19:59 Back: Positive for pain at rest, of the left low back and left mid back. Exam: 19:59 Constitutional: This is a well developed, well nourished patient who is awake, alert, gordon and in no acute distress. Head/Face: Normocephalic, atraumatic. Eyes: Pupils equal round and reactive to light, extra-ocular motions intact. Lids and lashes normal. Conjunctiva and sclera are non-icteric and not injected. Cornea within normal limits. Periorbital areas with no swelling, redness, or edema. ENT: Nares patent. No nasal discharge, no septal abnormalities noted. Tympanic membranes are normal and external auditory canals are clear. Oropharynx with no redness, swelling, or masses, exudates, or evidence of obstruction, uvula midline. Mucous membranes moist. Neck: Trachea midline, no thyromegaly or masses palpated, and no cervical lymphadenopathy. Supple, full range of motion without nuchal rigidity, or vertebral point tenderness. No Meningismus. Chest/axilla: Normal chest wall appearance and motion. Nontender with no deformity. No lesions are appreciated. Cardiovascular: Regular rate and rhythm with a normal S1 and S2. No gallops, murmurs, or rubs. Normal PMI, no JVD. No pulse deficits. Respiratory: Lungs have equal breath sounds bilaterally, clear to auscultation and percussion. No rales, rhonchi or wheezes noted. No increased work of breathing, no retractions or nasal flaring. Male : Normal genitalia with no discharge or lesions. Skin: Warm, dry with normal turgor. Normal color with no rashes, no lesions, and no evidence of cellulitis. MS/ Extremity: Pulses equal, no cyanosis. Neurovascular intact. Full, normal range of motion. Neuro: Awake and alert, GCS 15, oriented to person, place, time, and situation. Cranial nerves II-XII grossly intact. Motor strength 5/5 in all extremities. Sensory grossly intact. Cerebellar exam normal. Normal gait. Psych: Awake, alert, with orientation to person, place and time. Behavior, mood, and affect are within normal limits. 19:59 Abdomen/GI: Inspection: distension, Bowel sounds: normal, Palpation: mild abdominal tenderness, in the left upper quadrant and left lower quadrant, Liver: no appreciated palpable abnormalities, Hernia: not appreciated. Vital Signs: 19:28 BP 143 / 82; Pulse 84; Resp 18; Temp 97.2; Pulse Ox 97% on R/A; Weight 111.13 kg (R); hb Height 5 ft. 11 in. (180.34 cm) (R); Pain 10/10; 20:28 BP 138 / 90; Pulse 82; Resp 15; Pulse Ox 100% on R/A; Pain 0/10; rv 20:29 Pain 0/10; rv 21:12 BP 130 / 97; Pulse 86; Resp 16; Temp 98; Pulse Ox 99% on R/A; rv 19:28 Body Mass Index 34.17 (111.13 kg, 180.34 cm) hb MDM: 19:39 Patient medically screened. [facility] 19:59 Data reviewed: vital signs, nurses notes, lab test result(s), radiologic studies, CT gordon scan. 05/23 19:52 Order name: Basic Metabolic Panel; Complete Time: 20:35 [facility] 05/23 19:52 Order name: CBC with Diff; Complete Time: 20:35 [facility] 05/23 19:52 Order name: Creatinine for Radiology; Complete Time: 20:35 [facility] 05/23 19:52 Order name: Hepatic Function; Complete Time: 20:35 [facility] 05/23 19:52 Order name: Lipase; Complete Time: 20:35 [facility] 05/23 19:58 Order name: Urine Culture [facility] 05/23 19:52 Order name: CT Stone Protocol; Complete Time: 20:40 [facility] 05/23 20:05 Order name: Urine Dipstick--Ancillary (enter results); Complete Time: 20:35 [facility] 05/23 19:52 Order name: IV Saline Lock; Complete Time: 19:52 [facility] 05/23 19:52 Order name: Labs collected and sent; Complete Time: 19:52 [facility] 05/23 20:35 Order name: PO challenge: po juice; Complete Time: 20:47 [facility] Administered Medications: 20:10 Drug: morphine 4 mg Route: IVP; Site: left hand; rv 20:29 Follow up: Response: Marked relief of symptoms; Pain is decreased rv 20:10 Drug: TORadol 30 mg Route: IVP; Site: left hand; rv 20:29 Follow up: Pain 0/10 Adult; Response: Marked relief of symptoms; Pain is decreased rv 20:10 Drug: Zofran 4 mg Route: IVP; Site: left hand; rv 20:29 Follow up: Response: No adverse reaction rv 20:10 Drug: NS 0.9% 1000 ml Route: IV; Rate: 1 bolus; Site: left hand; rv 21:12 Follow up: IV Status: Completed infusion rv 20:24 Drug: Rocephin 1 grams Route: IV; Rate: per protocol; Site: left hand; rv 20:29 Follow up: IV Status: Completed infusion rv 20:47 Drug: Potassium Effervescent Tablet 50 mEq Route: PO; mg2 21:12 Follow up: Response: No adverse reaction rv 21:00 Drug: Flomax 0.4 mg Route: PO; rv 21:11 Follow up: Response: Medication administered at discharge. rv Disposition: 05/23/19 20:51 Discharged to Home. Impression: Hydronephrosis with renal and ureteral calculous obstruction, Hypokalemia. - Condition is Stable. - Discharge Instructions: Potassium Content of Foods, Kidney Stones, Kidney Stones, [id number], Hydronephrosis, Hypokalemia. - Prescriptions for Tylenol- Codeine #3 300-30 mg Oral Tablet - take 2 tablet by ORAL route every 6 hours As needed; 30 tablet. Zofran 4 mg Oral Tablet - take 1 tablet by ORAL route every 12 hours As needed; 20 tablet. Flomax 0.4 mg Oral Capsule, Sust. Release 24 hr - take 1 capsule by ORAL route once daily 1/2 hour following the same meal each day; 14 capsule. Cipro 500 mg Oral Tablet - take 1 tablet by ORAL route every 12 hours for 7 days; 14 tablet. - Medication Reconciliation Form, Thank You Letter, Antibiotic Education, Prescription Opioid Use form. - Follow up: Private Physician; When: 2 - 3 days; Reason: Recheck today's complaints, Continuance of care, Re-evaluation by your physician. Follow up: Thelma Jacob; When: 2 - 3 days; Reason: Recheck today's complaints, Re-evaluation by your physician. - Problem is new. - Symptoms have improved. Signatures: Dispatcher [employer] EDMS Felicitas Li, RN RN aj1 Rich Nicholson MD MD cha Mickail, Joel, PA PA jmm Baxter, Heather, RN RN Pedrito Denton, RN RN mg2 Americo Coronel RN RN rv Corrections: (The following items were deleted from the chart) 21:15 20:51 05/23/2019 20:51 Discharged to Home. Impression: Hydronephrosis with renal and rv ureteral calculous obstruction; Hypokalemia. Condition is Stable. Discharge Instructions: Kidney Stones, Kidney Stones, [id number], Hydronephrosis, Potassium Content of Foods, Hypokalemia. Prescriptions for Tylenol-Codeine #3 300-30 mg Oral Tablet - take 2 tablet by ORAL route every 6 hours As needed; 30 tablet, Zofran 4 mg Oral Tablet - take 1 tablet by ORAL route every 12 hours As needed; 20 tablet, Flomax 0.4 mg Oral Capsule, Sust. Release 24 hr - take 1 capsule by ORAL route once daily 1/2 hour following the same meal each day; 14 capsule, Cipro 500 mg Oral Tablet - take 1 tablet by ORAL route every 12 hours for 7 days; 14 tablet. and Forms are Medication Reconciliation Form, Thank You Letter, Antibiotic Education, Prescription Opioid Use. Follow up: Private Physician; When: 2 - 3 days; Reason: Recheck today's complaints, Continuance of care, Re-evaluation by your physician. Follow up: Thelma Jacob; When: 2 - 3 days; Reason: Recheck today's complaints, Re-evaluation by your physician. Problem is new. Symptoms have improved. gordon
--- NOTE | 2019-05-23 20:53 | ER ---
Nurse's Notes [facility] Name: Cesar Kimble Age: 44 yrs Sex: Male : 1975 Arrival Date: 05/23/2019 Time: 19:24 Bed 28 Private MD: Diagnosis: Hydronephrosis with renal and ureteral calculous obstruction;Hypokalemia Presentation: 05/23 19:27 Presenting complaint: Patient states: "All the sudden my side started hurting and then hb its all the way around to my stomach" Reports left flank pain that radiates to the abdomen. Reports urinary frequency. Transition of care: patient was not received from another setting of care. Onset of symptoms was May 23, 2019 at 19:15. Risk Assessment: Do you want to hurt yourself or someone else? Patient reports no desire to harm self or others. Initial Sepsis Screen: Does the patient meet any 2 criteria? No. Patient's initial sepsis screen is negative. Does the patient have a suspected source of infection? No. Patient's initial sepsis screen is negative. Care prior to arrival: None. 19:27 Method Of Arrival: Wheelchair 19:27 Acuity: SIOBHAN 3 hb Triage Assessment: 19:28 General: Appears uncomfortable, Behavior is cooperative, anxious, restless. Pain: hb Complains of pain in anterior aspect of right lateral abdomen and posterior aspect of right lateral abdomen Pain radiates to abdomen Pain currently is 10 out of 10 on a pain scale. Neuro: Level of Consciousness is awake, alert, obeys commands, Oriented to person, place, time, situation. Cardiovascular: Patient's skin is warm and dry. Respiratory: Reports shortness of breath Onset: The symptoms/episode began/occurred 10 minutes ago, the patient has mild shortness of breath. Historical: - Allergies: 19:28 No Known Allergies; hb - Home Meds: 19:28 blood pressure medication [Active]; hb - PMHx: 19:28 Hypertension; hb - Immunization history:: Flu vaccine is not up to date. - Social history:: Smoking status: Patient/guardian denies using tobacco. - Ebola Screening: : Patient denies travel to an Ebola-affected area in the 21 days before illness onset. - Family history:: not pertinent. Screenin:15 Abuse screen: Denies threats or abuse. Denies injuries from another. Nutritional rv screening: No deficits noted. Tuberculosis screening: No symptoms or risk factors identified. Fall Risk None identified. Assessment: 20:14 General: Appears in no apparent distress. uncomfortable, Behavior is calm, cooperative. rv Pain: Complains of pain in back and abdomen. Neuro: Level of Consciousness is awake, alert, obeys commands, Oriented to person, place, time, situation. Cardiovascular: Patient's skin is warm and dry. Rhythm is regular. Respiratory: Airway is patent Respiratory effort is even. GI: Reports lower abdominal pain. : No signs and/or symptoms were reported regarding the genitourinary system. EENT: No signs and/or symptoms were reported regarding the EENT system. Derm: Skin is intact. Musculoskeletal: No signs and/or symptoms reported regarding the musculoskeletal system. 20:16 Respiratory: Breath sounds are clear bilaterally. rv 20:29 Reassessment: AWAITING CT SCAN REPORT. rv Vital Signs: 19:28 BP 143 / 82; Pulse 84; Resp 18; Temp 97.2; Pulse Ox 97% on R/A; Weight 111.13 kg (R); hb Height 5 ft. 11 in. (180.34 cm) (R); Pain 10/10; 20:28 BP 138 / 90; Pulse 82; Resp 15; Pulse Ox 100% on R/A; Pain 0/10; rv 20:29 Pain 0/10; rv 21:12 BP 130 / 97; Pulse 86; Resp 16; Temp 98; Pulse Ox 99% on R/A; rv 19:28 Body Mass Index 34.17 (111.13 kg, 180.34 cm) hb ED Course: 19:24 Patient arrived in ED. ds1 19:28 Triage completed. hb 19:28 Arm band placed on. hb 19:39 Rich Nicholson MD is Attending Physician. gordon 19:52 Initial lab(s) drawn, by me, sent to lab. Inserted saline lock: 22 gauge in left hand, aj1 using aseptic technique. Blood collected. 20:07 CT Stone Protocol In Process Unspecified. EDMS 20:12 Americo Coronel, INDRA is Primary Nurse. rv 20:15 Patient has correct armband on for positive identification. Bed in low position. Call rv light in reach. Side rails up X 1. Pulse ox on. NIBP on. 20:33 Notified ED physician of a critical lab result(s). K 2.9. aj1 20:51 Thelma Jacob MD is Referral Physician. gordon 21:13 No provider procedures requiring assistance completed. IV discontinued, intact, rv bleeding controlled, No redness/swelling at site. Pressure dressing applied. Administered Medications: 20:10 Drug: morphine 4 mg Route: IVP; Site: left hand; rv 20:29 Follow up: Response: Marked relief of symptoms; Pain is decreased rv 20:10 Drug: TORadol 30 mg Route: IVP; Site: left hand; rv 20:29 Follow up: Pain 0/10 Adult; Response: Marked relief of symptoms; Pain is decreased rv 20:10 Drug: Zofran 4 mg Route: IVP; Site: left hand; rv 20:29 Follow up: Response: No adverse reaction rv 20:10 Drug: NS 0.9% 1000 ml Route: IV; Rate: 1 bolus; Site: left hand; rv 21:12 Follow up: IV Status: Completed infusion rv 20:24 Drug: Rocephin 1 grams Route: IV; Rate: per protocol; Site: left hand; rv 20:29 Follow up: IV Status: Completed infusion rv 20:47 Drug: Potassium Effervescent Tablet 50 mEq Route: PO; mg2 21:12 Follow up: Response: No adverse reaction rv 21:00 Drug: Flomax 0.4 mg Route: PO; rv 21:11 Follow up: Response: Medication administered at discharge. rv Outcome: 20:51 Discharge ordered by . gordon 21:14 Discharged to home ambulatory. rv 21:14 Condition: improved 21:14 Discharge instructions given to patient, Instructed on discharge instructions, follow up and referral plans. medication usage, Demonstrated understanding of instructions, follow-up care, medications, Prescriptions given X 4. 21:15 Patient left the ED. rv Signatures: Dispatcher [employer] EDMS Felicitas Li RN RN aj1 Rich Nicholson MD MD cha Sanford, Demi ds1 Cristal Stephen RN RN hb Pedrito Denton RN RN mg2 Americo Coronel RN RN rv
[2019-05-23] MEDS ORDERED: POTASSIUM 25 MEQ EFFERV TAB ONE (20:56)
[2019-05-23] MEDS ORDERED: TAMSULOSIN 0.4 MG SR CAP ONE (21:15)
== END 2019-05-23 21:15 | disposition home or self-care (01) ==
LOC: ER 19:23
DX: N13.2 Hydronephrosis with renal and ureteral calculous obstruction (principal); E87.6 Hypokalemia; R10.32 Left lower quadrant pain; I10 Essential (primary) hypertension
CPT/HCPCS: 36415; 74176; 76377; 80048; 80076; 81003; 83690; 85025; 87086; 87088; J0696; J2405; J7030